=== PATIENT | male | born 1960 | race Caucasian/White ===

== ENCOUNTER 2016-08-23 04:35 | Emergency (ER) | payer OTHER ==
--- NOTE | 2016-08-23 04:57 | Emergency Department Record ---
History of Present Illness - General Chief Complaint: Back Pain/Injury Stated Complaint: BACK PAIN Time Seen by Provider: 08/23/16 04:51 Source: Patient Mode of Arrival: Ambulatory Limitations: No limitations - History of Present Illness Initial Comments: 56 yo male presents with back pain since Thursday. The patient had been doing a lot of outdoor yard work. The pain is lower lumber a little more to the right. the pain is very sharp and positional. No radiation to the legs. No weakness. No changes in bowel or bladder function. He has seen his chiropractor twice without providing any relief. He started Flexeril on Thursday prescribed by Dr Carr. No abdominal pain. MD Complaint: Back pain Onset/Timin -: Days(s) Place: Home Radiation: None Severity: Severe Severity scale (1-10): 10 Consistency: Constant, Getting worse Improves With: None Worsens With: Movement Associated Symptoms: Difficulty walking Treatments Prior to Arrival: Other medications - Related Data Home Medications Medication Instructions Recorded Confirmed Last Taken Cyclobenzaprine HCl [Flexeril] 10 mg PO TID 08/23/16 08/23/16 08/22/16 Previous Rx's Medication Instructions Recorded Hydrocodone/Acetaminophen [[place] 1 each PO Q6H #15 tablet 08/23/16 7.5-325 Tablet] Methylprednisolone [Medrol Dose 0 mg PO UD #1 tab.ds.pk 08/23/16 Pack] Naproxen [Naprosyn] 500 mg PO Q12H #30 tab. 08/23/16 Allergies Allergy/AdvReac Type Severity Reaction Status Date / Time No Known Drug Allergies Allergy Verified 08/23/16 04:36 Travel Screening - Travel/Exposure Within Last 30 Days Have you traveled within the last 30 days?: No - Travel Symptoms Symptom Screening: None Review of Systems Constitutional: Denies: Chills, Fever, Weakness Eyes: Denies: Eye discharge ENT: Denies: Congestion, Throat pain Respiratory: Denies: Cough, Dyspnea, Hemoptysis, Stridor, Wheezes Cardiovascular: Denies: Chest pain, Palpitations Endocrine: Denies: Fatigue Gastrointestinal: Denies: Abdominal pain, Diarrhea, Nausea, Vomiting Genitourinary: Denies: Dysuria, Frequency, Hematuria Musculoskeletal: Reports: As per HPI, Back pain. Denies: Arthralgia, Neck pain Skin: Denies: Bruising, Change in color Neurological: Denies: Abnormal gait, Confusion, Headache, Numbness, Paresthesias , Tingling, Tremors, Vertigo, Weakness Psychiatric: Denies: Anxiety Hematological/Lymphatic: Denies: Blood Clots, Easy bleeding, Easy bruising, Swollen glands Past Medical History - SOCIAL HISTORY Smoking Status: Current some day smoker - RESPIRATORY Hx Respiratory Disorders: No - CARDIOVASCULAR Hx Cardio Disorders: No - NEURO Hx Neuro Disorders: No - GI Hx GI Disorders: No - Hx Genitourinary Disorders: No - ENDOCRINE Hx Endocrine Disorders: No - MUSCULOSKELETAL Hx Musculoskeletal Disorders: Yes - PSYCH Hx Psych Problems: No - HEMATOLOGY/ONCOLOGY Hx Hematology/Oncology Disorders: No Family Medical History Any Significant Family History?: Yes Hx Cancer: Mother Hx Diabetes: Father Physical Exam - General General Appearance: Alert, Oriented x3, Cooperative, No acute distress Limitations: No limitations - Head Head exam: Normal inspection - Eye Eye exam: Normal appearance - ENT ENT exam: Normal exam Ear exam: Normal external inspection Nasal Exam: Normal inspection Mouth exam: Normal external inspection - Neck Neck exam: Normal inspection - Respiratory Respiratory exam: Normal lung sounds bilaterally. negative: Respiratory distress - Cardiovascular Cardiovascular Exam: Regular rate, Normal rhythm, Normal heart sounds - GI/Abdominal GI/Abdominal exam: Soft. negative: Pulsatile mass, Tenderness - Rectal Rectal exam: Fecal impaction - exam: Deferred - Extremities Extremities exam: Normal inspection, Full ROM, Normal capillary refill. negative: Pedal edema, Tenderness - Back Back exam: Reports: Muscle spasm, Paraspinal tenderness (lower right lumbar), Tenderness, Vertebral tenderness. Denies: Full ROM - Neurological Neurological exam: Alert, Normal gait, Oriented X3, Other (appears moderately uncomfortable standing). negative: Abnormal gait, Altered, Motor sensory deficit - Psychiatric Psychiatric exam: Normal affect, Normal mood. negative: Agitated, Anxious - Skin Skin exam: Dry, Intact, Normal color, Warm Course Vital Signs 08/23/16 04:37 Temperature 97.6 F Pulse Rate 90 Respiratory 18 Rate Blood Pressure 118/82 Pulse Ox 95 - Reevaluation(s) Reevaluation #1: 08/23/16 05:33 Vitals reviewed. No hypertension or tachycardia No acute changes on the CBC and CMP CT ordered due to the pain level and to rule out other causes of pain of the right lower flank. 08/23/16 06:10 Reevaluation #2: [facility] CT results demonstrated diverticulosis no acute diverticulitis, prominent LN in the inguinal area, and degenerative changes noted in the spine. we discussed the findings and the recommendations for close followup with his PCP this week 08/23/16 06:24 Reevaluation #3: After DC of the IV the patient became pale and light headed. BP decreased as well. The patient was placed in bed and IVF will be given. 08/23/16 07:05 Medical Decision Making - Lab Data Result diagrams: 08/23/16 05:10 08/23/16 05:10 Disposition Disposition: Discharge Clinical Impression: Lumbar spine strain Qualifiers: Encounter type: initial encounter Qualified Code(s): S39.012A - Strain of muscle, fascia and tendon of lower back, initial encounter Disposition: Home, Self-Care Condition: (1) Good Instructions: Low Back Strain (ED) Additional Instructions: Call your doctor Thursday for close follow up of you pain Return if your pain is not controlled or any new concerns such as weakness, numbness, changes in bowel or bladder function Prescriptions: Hydrocodone/Acetaminophen [[place] 7.5-325 Tablet] 1 each PO Q6H #15 tablet Methylprednisolone [Medrol Dose Pack] 0 mg PO UD #1 tab.ds.pk Naproxen [Naprosyn] 500 mg PO Q12H #30 tab.dr Forms: Patient Portal Access Time of Disposition: 05:56
[2016-08-23] MEDS ORDERED: KETOROLAC 30 MG/ML VIAL IVP ONE (04:58)
[2016-08-23] MEDS ORDERED: MORPHINE SULFATE 5 MG/ML PFS IVP ONE (04:58)
[2016-08-23] MEDS ORDERED: METHYLPREDNISOLONE PF 125MG/VIAL IVP ONE (04:58)
[2016-08-23 05:19] LABS: BASO % 0.3 % (0-6); EOS % 1.5 % (0-6); GRAN % 68.7 % (47-80); HEMATOCRIT 48.8 % (42.0-52.0); HEMOGLOBIN 16.2 gm/dl (14.0-18.0); LYMPH % 21.4 % (16-45); MEAN CELL VOLUME 87.9 fl (81-97); MEAN CORPUSCULAR HEMOGLOBIN 29.2 pg (27-33); MEAN CORPUSCULAR HGB CONC 33.2 g/dl (32-36); MEAN PLATELET VOLUME 9.6 fl (7.4-10.4); MONO % 8.1 % (0-9); PLATELET COUNT 227 K/uL (130-400); RED BLOOD COUNT 5.55 M/uL (4.40-5.70); RED CELL DISTRIBUTION WIDTH 13.1 % (11.5-14.5); WHITE BLOOD COUNT W/O DIFF 5.9 K/uL (4.2-12.2)
[2016-08-23 05:27] LABS: ALB/GLOB RATIO 1.3 (1.1-1.8); ALBUMIN 4.8 gm/dL (3.5-5.0); ALKALINE PHOSPHATASE 67 U/L (38-126); ALT/SGPT 64 U/L (21-72); ANION GAP 9.2 (7-16); AST/SGOT 38 U/L (17-59); BILIRUBIN,TOTAL 0.69 mg/dL (0.2-1.3); BLOOD UREA NITROGEN 19 mg/dL (9-20); CARBON DIOXIDE 23.8 mmol/L (22-30); EST GLOMERULAR FILTRATION RATE > 60 ml/min; GLUCOSE,RANDOM 110 mg/dL (70-110); TOTAL PROTEIN 8.4 gm/dL (6.3-8.2)
[2016-08-23] MEDS ORDERED: HYDROCODONE/APAP 7.5/325MG TABLET PO ONE (06:33)
[2016-08-23] MEDS ORDERED: 0.9 % SODIUM CHLORIDE 1,000 ML BAG IV ONE (07:16)
--- NOTE | 2016-08-25 09:20 | CT SCAN REPORT ---
EXAM: CT SCAN OF THE ABDOMEN AND PELVIS WITHOUT CONTRAST HISTORY: RIGHT LOWER FLANK PAIN AND BACK PAIN FOR THE PAST FIVE DAYS. PROGRESSIVELY WORSENING SYMPTOMS. TECHNIQUE: Standard CT imaging of the abdomen and pelvis was performed without contrast. Comparison: None. FINDINGS: The lung bases are clear. A 1.3 cm cyst is present within the left hepatic lobe. The unenhanced liver parenchyma is otherwise normal. The gallbladder appears normal. There is no biliary ductal dilatation. The pancreas, spleen, and adrenal glands are normal. The kidneys and ureters are unremarkable. There is no hydronephrosis or obstructing calculus. The aorta is normal in caliber. There is no retroperitoneal lymphadenopathy. The stomach and epigastrium are normal. There are scattered diverticula within the descending and sigmoid colon regions within evidence for acute diverticulitis. The remaining bowel and mesentery including the appendix are normal. There is no pneumoperitoneum or ascites. The urinary bladder and prostate gland appear normal. Surgical clips are present within the left inguinal region. There are mildly prominent lymph nodes within the inguinal regions bilaterally, right greater than left. These are of uncertain significance. The largest is located within the right inguinal region and measures 1.3 x 2.3 cm. An 8 mm lucency is present within the T12 vertebral body. A 7 mm lucency is present within the left iliac bone. These are nonspecific and may simply represent hemangiomas. There are no acute osseous abnormalities. There are minor arthritic changes within the lumbar spine. IMPRESSION: 1. NO ACUTE INTRAABDOMINAL PATHOLOGY. 2. COLONIC DIVERTICULOSIS WITH NO DIVERTICULITIS. 3. 1.3 CM LEFT HEPATIC CYST. 4. SMALL NONSPECIFIC LUCENCIES WITHIN THE T12 VERTEBRAL BODY AND LEFT ILIAC BONE. JOB NUMBER: [id number] [facility]
== END 2016-08-23 08:10 | disposition home or self-care (01) ==
LOC: ER 04:35
DX: S39.012A Strain of muscle, fascia and tendon of lower back, initial encounter (principal); R42 Dizziness and giddiness; X50.3XXA Overexertion from repetitive movements, initial encounter; Y93.H2 Activity, gardening and landscaping; Y92.007 Garden or yard of unspecified non-institutional (private) residence as the place of occurrence of the external cause
CPT/HCPCS: 99284 ×2; 96374; 96375; 85025; 80053; 74176; J1885; J2270; J2930; J7030